=== PATIENT | male | born 1985 | race Caucasian/White ===

== ENCOUNTER → 2018-08-14 | Outpatient (CLI) | payer BC ==
[~2018-08-14] MED LIST: CIPRO 500MG TA500 MG PO; NO HOME MEDICATIONS; PERCOCET 325 MG1 TA2 PO; PHENERGAN 25 TA25 MG PO; PHENERGAN25 MG RC
[2018-08-14 16:55] LABS: ALBUMIN 4.1 gm/dL (3.5-5.0); BILIRUBIN,TOTAL 1.5 mg/dL (0.0-1.0); CALCIUM 9.3 mg/dL (8.4-10.2); CHOLESTEROL RISK RATIO 3.9; CREATININE, serum 1.02 (0.66-1.25); TOTAL PROTEIN 7.5 gm/dL (6.4-8.2)
[2018-08-14 17:24] LABS: THYROID STIMULATING HORMONE 1.19 uIU/mL (0.465-4.680)
== END ==
LOC: ZCOL.LAB 16:35
PROVIDERS: Family Medicine
DX: E66.01 Morbid (severe) obesity due to excess calories (principal)

== ENCOUNTER 2019-02-28 12:25 | Emergency (ER) | payer OTHER ==
[~2019-02-28] VITALS: Ht 182.9 cm; Wt 150.0 kg
[2019-02-28 13:11] LABS: BASO % 0.4 % (0.0-2.0); EOS # 0.1 (0.0-0.7); EOS % 1.2 % (0-4.0); GRAN # 5.4 (1.4-6.5); GRAN % 78.1 % (42.2-75.2); HEMATOCRIT 43.8 % (42.0-52.0); HEMOGLOBIN 14.4 g/dl (13.5-18.0); LYMPH # 0.8 (1.2-3.4); LYMPH % 11.5 % (20.0-51.0); MEAN CELL VOLUME 88 fl (80.0-100.0); MEAN CORPUSCULAR HEMOGLOBIN 29 pg (27.0-31.0); MEAN CORPUSCULAR HGB CONC 33 g/dl (33.0-37.0); MEAN PLATELET VOLUME 8.9 fl (7.4-10.4); MONO # 0.6 (0.1-0.6); MONO % 8.4 % (1.7-9.3); PLATELET COUNT 225 K/mm3 (130-400); RED BLOOD COUNT 4.96 M/mm3 (4.20-5.60); REDCELL DISTRIBUTION WIDTH-CV 12.5 % (11.5-14.5)
[2019-02-28 13:21] LABS: ALBUMIN 4.1 gm/dL (3.5-5.0); BILIRUBIN,TOTAL 0.7 mg/dL (0.0-1.0); CREATININE, serum 1.01 (0.66-1.25); POTASSIUM 4.2 mmol/L (3.4-5.0)
[2019-02-28] MEDS ORDERED: TESSALON P100 MG/CAP PO (13:40)
[2019-02-28] MEDS ORDERED: TUSS PO (13:40)
[2019-02-28] MEDS ORDERED: ZITHROMAX500 M2 PO (13:40)
[2019-02-28] MEDS ORDERED: IPRATROPIUM BROM3 M1 IH (13:40)
[2019-02-28] MEDS ORDERED: NEB MC (13:40)
[2019-02-28] MEDS ORDERED: OMNICEF 300MG300 MG PO (13:51)
[2019-02-28 14:02] VITALS: BP 150/86; PULSE 111; TEMP 99.5
== END 2019-02-28 14:07 | disposition home or self-care (01) ==
LOC: COL.ER 12:25
PROVIDERS: Nurse Practitioner Primary Care
DX: J18.1 Lobar pneumonia, unspecified organism (principal); Z88.0 Allergy status to penicillin

== ENCOUNTER → 2019-03-16 | Outpatient (CLI) | payer OTHER ==
[~2019-03-16] MED LIST changes: +IPRATROPIUM BROM3 M1 IH; +NEB MC; +OMNICEF 300MG300 MG PO; +TESSALON P100 MG/CAP PO; +TUSS PO; +ZITHROMAX500 M2 PO
== END ==
LOC: COL.RAD 14:22
DX: J18.1 Lobar pneumonia, unspecified organism (principal)

== ENCOUNTER → 2019-07-21 | Outpatient (CLI) | payer OTHER ==
[2019-07-21 17:06] LABS: CHOLESTEROL RISK RATIO 4.8
== END ==
LOC: ZCOL.LAB 16:36
PROVIDERS: Family Medicine
DX: Z01.89 Encounter for other specified special examinations (principal)

== ENCOUNTER → 2020-11-29 | Outpatient (CLI) | payer OTHER | LOC: COL.VAS 12:36 | DX: I34.0 Nonrheumatic mitral (valve) insufficiency (principal) ==

== ENCOUNTER 2022-07-04 13:45 | Day surgery (SDC) | payer OTHER ==
[~2022-07-04] VITALS: Ht 182.9 cm; Wt 150.0 kg
[2022-07-04 14:54] VITALS: BP 124/67; PULSE 70; TEMP 97.2
[2022-07-04] MEDS ORDERED: FLOMAX 0.40.4 MG/CAP PO (16:04)
[2022-07-04] MEDS ORDERED: PERCOCET 325 MG1 TA2 PO (16:05)
[2022-07-04 16:58] VITALS: BP 148/91; PULSE 64; TEMP 96.9
[2022-07-04 17:13] VITALS: BP 142/82; PULSE 56
[2022-07-04 17:28] VITALS: BP 135/81; PULSE 64
[2022-07-04 17:40] VITALS: BP 140/84; PULSE 72
--- NOTE | 2022-07-04 17:50 | NUR ---
1658 RETURNS TO ROOM 3 PER CART. AWAKE, ALERT. HOB ELEVATED 30 DEGREES. RESP UNLABORED. VITAL SIGNS OBTAINED. DENIES PAIN OR URINARY URGENCY. EXPRESSES PRESENCE OF "STINGING" AT MEATUS. VITAL SIGNS OBTAINED. CALL LIGHT AT SIDE. 1710 TOLERATES PO JUICE AND MUFFIN WITHOUT NAUSEA 1725 DISCHARGE INSTRUCTIONS REVIEWED. PATIENT VERBALIZES UNDERSTANDING. COPY PROVIDED IN DISCHARGE FOLDER 1741 SITS ON EDGE OF BED. DRESSES SELF 1745 AMBULATES TO BATHROOM WITH STANDBY ASSIST. REPORTS VOIDED WITHOUT DIFFICULTY PINK URINE
[2022-07-04 18:44] VITALS: BP 148/64; PULSE 63; TEMP 97
== END 2022-07-04 17:53 | disposition left against medical advice (07) ==
LOC: SDCO 13:45
DX: N20.1 Calculus of ureter (principal); G47.33 Obstructive sleep apnea (adult) (pediatric); Z99.81 Dependence on supplemental oxygen
CPT/HCPCS: C1769; C2617; J0360; J0690; J1100; J2405; J2704; J3010; J7120; Q9967